=== PATIENT | male | born 1970 | race Hispanic/Latino ===

== ENCOUNTER 2021-02-07 14:40 | Emergency (ER) | payer OTHER ==
[2021-02-07] MEDS ORDERED: Ondansetron PF 4 MG/2 ML Vial ONE (15:48)
[2021-02-07] MEDS ORDERED: Ketorolac Tromethamine 30 MG/ML VIAL ONE (15:48)
[2021-02-07 16:10] LABS: #Basophils 0.1 10x3/uL (0.0-0.2); #Eosinphils 0.2 10x3/uL (0.0-0.5); #Neutrophils 6.6 10x3/uL (1.5-8.4); %Basophils 0.7 % (0.0-2.0); %Eosinophils 1.9 % (0.0-6.0); %Lymphocytes 15.4 % (18.0-47.0); %Monocytes 10.6 % (0.0-10.0); %Neutrophils 69.2 % (40.0-75.0); Hemoglobin 12.9 g/dL (13.5-17.5); Mean Corpuscular HGB CONC 33.8 g/dL (32.0-36.0); Mean Corpuscular Hemoglobin 30.6 pg (27.0-33.0); Mean Corpuscular Volume 90.5 fl (81.2-95.1); Mean Platelet Volume 10.2 fl (7.4-10.4); Platelet Count 210 10x3/uL (150-450); RBC Distribution Width 13.8 % (11.5-14.5); Red Blood Cell (RBC) Count 4.22 10x6/uL (4.32-5.72); White Blood Cell (WBC) Count 9.6 10x3/uL (3.5-10.5)
[2021-02-07 16:26] LABS: Anion Gap 15 mmol/L (10-20); BUN (Urea Nitrogen) 22 mg/dL (8.9-20.6); Bilirubin, Total 0.5 mg/dL (0.2-1.2); Calc. Creatinine Clearance 0 mL/min (70-130); Calcium 8.9 mg/dL (7.8-10.44); Carbon Dioxide 27 mmol/L (22-29); Chloride 101 mmol/L (98-107); Globulin 2.4 g/dL (2.4-3.5); Glucose 111 mg/dL (70-105); Potassium 3.7 mmol/L (3.5-5.1); Protein, Total 6.4 g/dL (6.0-8.3); Sodium 139 mmol/L (136-145)
[2021-02-07 16:27] LABS: ALT (SGPT) 23 U/L (8-55); AST (SGOT) 18 U/L (5-34); Alkaline Phosphatase 83 U/L (40-110); CK (CPK) 226 U/L (30-200); Lipase 25 U/L (8-78)
== END 2021-02-07 17:27 | disposition home or self-care (01) ==
LOC: CSHERS 14:40
DX: R10.11 Right upper quadrant pain (principal); S80.812A Abrasion, left lower leg, initial encounter; S80.811A Abrasion, right lower leg, initial encounter; E78.5 Hyperlipidemia, unspecified; I10 Essential (primary) hypertension; M10.9 Gout, unspecified; F17.200 Nicotine dependence, unspecified, uncomplicated
CPT/HCPCS: 74177; 80053; 82550; 83605; 83690; 84484; 85025; 93005; 96374; 96375; J1885; J2405

== ENCOUNTER 2021-02-22 06:46 | Emergency (ER) | payer OTHER ==
[2021-02-22 07:52] LABS: #Eosinphils 0.1 10x3/uL (0.0-0.5); #Monocytes 0.9 10x3/uL (0.0-1.1); #Neutrophils 6.2 10x3/uL (1.5-8.4); %Basophils 0.3 % (0.0-2.0); %Eosinophils 0.8 % (0.0-6.0); %Lymphocytes 18.2 % (18.0-47.0); %Monocytes 9.8 % (0.0-10.0); %Neutrophils 69.5 % (40.0-75.0); Hemoglobin 13.2 g/dL (13.5-17.5); Mean Corpuscular HGB CONC 33.9 g/dL (32.0-36.0); Mean Corpuscular Hemoglobin 31.1 pg (27.0-33.0); Mean Corpuscular Volume 91.5 fl (81.2-95.1); Mean Platelet Volume 9.9 fl (7.4-10.4); Platelet Count 199 10x3/uL (150-450); RBC Distribution Width 13.2 % (11.5-14.5); Red Blood Cell (RBC) Count 4.25 10x6/uL (4.32-5.72); White Blood Cell (WBC) Count 8.9 10x3/uL (3.5-10.5)
[2021-02-22 08:05] LABS: ALT (SGPT) 17 U/L (8-55); AST (SGOT) 10 U/L (5-34); Albumin 3.9 g/dL (3.5-5.0); Alkaline Phosphatase 77 U/L (40-110); Anion Gap 14 mmol/L (10-20); BUN (Urea Nitrogen) 20 mg/dL (8.9-20.6); Bilirubin, Total 0.5 mg/dL (0.2-1.2); Calc. Creatinine Clearance 0 mL/min (70-130); Calcium 8.9 mg/dL (7.8-10.44); Carbon Dioxide 26 mmol/L (22-29); Chloride 104 mmol/L (98-107); Globulin 2.8 g/dL (2.4-3.5); Glucose 145 mg/dL (70-105); Potassium 3.2 mmol/L (3.5-5.1); Protein, Total 6.7 g/dL (6.0-8.3); Sodium 141 mmol/L (136-145)
[2021-02-22 10:46] LABS: Troponin I 0.011 ng/mL (< 0.028)
[2021-02-22 20:11] LABS: SARS-CoV-2 PCR by NAA Not Detected (NotDetected)
== END 2021-02-22 10:50 | disposition home or self-care (01) ==
LOC: CSHERS 06:46
DX: J18.9 Pneumonia, unspecified organism (principal); Z20.822 Contact with and (suspected) exposure to COVID-19; I10 Essential (primary) hypertension; E11.9 Type 2 diabetes mellitus without complications; E78.5 Hyperlipidemia, unspecified; Z87.891 Personal history of nicotine dependence
CPT/HCPCS: 71045; 71275; 80053; 83880; 84484; 85025; 87635; 93005; U0003; U0005

== ENCOUNTER 2021-03-12 14:21 | Outpatient (CLI) | payer OTHER ==
[2021-03-13 02:08] LABS: SARS-CoV-2 NAA Rapid Test Not Detected (NotDetected)
== END 2021-03-12 14:22 | disposition home or self-care (01) ==
LOC: CSHLAB 14:21
PROVIDERS: ATTEND Internal Medicine Gastroenterology
DX: Z20.822 Contact with and (suspected) exposure to COVID-19 (principal); R10.9 Unspecified abdominal pain
CPT/HCPCS: 87635; U0002; U0003; U0005

== ENCOUNTER 2021-03-13 17:03 | Emergency (ER) | payer OTHER | END 2021-03-13 19:02 | disposition left against medical advice (07) | LOC: CSHERS 17:03 | DX: Z53.21 Procedure and treatment not carried out due to patient leaving prior to being seen by health care provider (principal) ==

== ENCOUNTER 2021-11-05 09:35 | Emergency (ER) | payer OTHER ==
[2021-11-05] MEDS ORDERED: Ketorolac Tromethamine 30 MG/ML VIAL ONE (10:05)
== END 2021-11-05 12:12 | disposition home or self-care (01) ==
LOC: CSHERS 09:35
DX: K42.9 Umbilical hernia without obstruction or gangrene (principal); M25.531 Pain in right wrist; E78.5 Hyperlipidemia, unspecified; I10 Essential (primary) hypertension; E11.9 Type 2 diabetes mellitus without complications; Z87.891 Personal history of nicotine dependence
CPT/HCPCS: 96372; 99283; J1885

== ENCOUNTER 2022-04-19 16:54 | Emergency (ER) | payer OTHER ==
[2022-04-19 17:24] LABS: #Basophils 0.1 10x3/uL (0.0-0.2); #Eosinphils 0.3 10x3/uL (0.0-0.5); #Monocytes 0.8 10x3/uL (0.0-1.1); #Neutrophils 4.5 10x3/uL (1.5-8.4); %Basophils 1.5 % (0.0-2.0); %Eosinophils 4.1 % (0.0-6.0); %Lymphocytes 21.1 % (18.0-47.0); %Monocytes 11.3 % (0.0-10.0); %Neutrophils 61.4 % (40.0-75.0); Hemoglobin 12.5 g/dL (13.5-17.5); Mean Corpuscular HGB CONC 34.3 g/dL (32.0-36.0); Mean Corpuscular Hemoglobin 30.1 pg (27.0-33.0); Mean Corpuscular Volume 87.7 fl (81.2-95.1); Mean Platelet Volume 9.6 fl (7.4-10.4); Platelet Count 201 10x3/uL (150-450); RBC Distribution Width 13.3 % (11.5-14.5); Red Blood Cell (RBC) Count 4.15 10x6/uL (4.32-5.72); White Blood Cell (WBC) Count 7.3 10x3/uL (3.5-10.5)
[2022-04-19 17:29] LABS: Bilirubin Neg (Negative); Blood, Urine 150 (Negative); Clarity Clear (Clear); Glucose, Urine (Dipstick) Normal (Negative); Ketone, Urine Negative (Negative); Leukocyte Negative (Negative); Nitrite Negative (Negative); Protein, Urine (Dipstick) 30 mg/dl (Neg-Trace)
[2022-04-19 17:35] LABS: RBC/HPF 21-50 HPF (0-3); Squamous Epithelial 0-3 HPF (0-3); WBC/HPF 0-3 HPF (0-3)
[2022-04-19 17:36] LABS: Bacteria/HPF None Seen HPF (None Seen)
[2022-04-19 17:39] LABS: ALT (SGPT) 17 U/L (8-55); AST (SGOT) 16 U/L (5-34); Albumin 4.2 g/dL (3.5-5.0); Alkaline Phosphatase 71 U/L (40-110); Anion Gap 18 mmol/L (10-20); BUN (Urea Nitrogen) 23 mg/dL (8.4-25.7); Bilirubin, Total 0.4 mg/dL (0.2-1.2); Calc. Creatinine Clearance 0 mL/min (70-130); Calcium 9.6 mg/dL (7.8-10.44); Carbon Dioxide 22 mmol/L (22-29); Chloride 103 mmol/L (98-107); Globulin 2.9 g/dL (2.4-3.5); Glucose 134 mg/dL (70-105); Lipase 51 U/L (8-78); Magnesium 1.5 mg/dL (1.6-2.6); Potassium 3.8 mmol/L (3.5-5.1); Protein, Total 7.1 g/dL (6.0-8.3); Sodium 139 mmol/L (136-145)
[2022-04-19] MEDS ORDERED: Ketorolac Tromethamine 30 MG/ML VIAL ONE (17:47)
[2022-04-19] MEDS ORDERED: Morphine 4 MG/ML VIAL ONE (17:47)
[2022-04-19] MEDS ORDERED: Ondansetron PF 4 MG/2 ML Vial ONE (17:48)
== END 2022-04-19 19:24 | disposition home or self-care (01) ==
LOC: CSHERS 16:54
DX: N13.2 Hydronephrosis with renal and ureteral calculous obstruction (principal); E78.5 Hyperlipidemia, unspecified; I10 Essential (primary) hypertension; E11.9 Type 2 diabetes mellitus without complications; Z87.891 Personal history of nicotine dependence
CPT/HCPCS: 74176; 80053; 81003; 81015; 83690; 83735; 85025; 87086; 96374; 96375; J1885; J2270; J2405

== ENCOUNTER 2023-01-21 14:32 | Emergency (ER) | payer OTHER ==
[2023-01-21] MEDS ORDERED: traMADol HCl 50 MG TAB ONE (15:51)
[2023-01-21] MEDS ORDERED: Acetaminophen 500 MG TAB ONE (15:55)
== END 2023-01-21 16:54 | disposition home or self-care (01) ==
LOC: CSHERS 14:32
DX: M54.50 Low back pain, unspecified (principal); M25.511 Pain in right shoulder; V49.60XA Unspecified car occupant injured in collision with unspecified motor vehicles in traffic accident, initial encounter; Y92.410 Unspecified street and highway as the place of occurrence of the external cause
CPT/HCPCS: 72128; 72131

== ENCOUNTER 2023-08-23 03:52 | Emergency (ER) | payer OTHER ==
[2023-08-23 04:29] LABS: Bilirubin Neg (Negative); Blood, Urine 150 (Negative); Clarity Slightly Cloudy (Clear); Glucose, Urine (Dipstick) Normal (Negative); Ketone, Urine Negative (Negative); Leukocyte 25 (Negative); Nitrite Negative (Negative); Protein, Urine (Dipstick) 30 mg/dl (Neg-Trace); Specific Gravity, Urine 1.015 (1.005-1.030); Urobilinogen Normal mg/dL (Less than 2)
[2023-08-23] MEDS ORDERED: Ketorolac Tromethamine 30 MG/ML VIAL ONE (04:34)
[2023-08-23 04:58] LABS: CAUTI Indications for Culture Dysuria,urgency,freq; RBC/HPF 21-50 HPF (0-3); WBC/HPF 0-3 HPF (0-3)
[2023-08-23 04:59] LABS: Bacteria/HPF Rare-Few HPF (None Seen)
[2023-08-23 05:00] LABS: Urine Culture Reflex No No
== END 2023-08-23 05:10 | disposition home or self-care (01) ==
LOC: CSHERS 03:52
DX: R30.0 Dysuria (principal); R31.9 Hematuria, unspecified; K21.9 Gastro-esophageal reflux disease without esophagitis; E11.9 Type 2 diabetes mellitus without complications; E78.5 Hyperlipidemia, unspecified; Z79.84 Long term (current) use of oral hypoglycemic drugs; Z79.899 Other long term (current) drug therapy
CPT/HCPCS: 81001; 96372; 99283; J1885

== ENCOUNTER 2024-09-29 15:15 | Emergency (ER) | payer OTHER ==
[2024-09-29] MEDS ORDERED: Acetaminophen 325 MG TAB ONE (15:50)
[2024-09-29] MEDS ORDERED: Morphine 10 MG/ML VIAL ONE (17:03)
[2024-09-29] MEDS ORDERED: Ondansetron PF 4 MG/2 ML Vial ONE (17:03)
== END 2024-09-29 17:44 | disposition home or self-care (01) ==
LOC: CSHERS 15:15
DX: S06.0X0A Concussion without loss of consciousness, initial encounter (principal); S16.1XXA Strain of muscle, fascia and tendon at neck level, initial encounter; E11.9 Type 2 diabetes mellitus without complications; I10 Essential (primary) hypertension; W19.XXXA Unspecified fall, initial encounter
CPT/HCPCS: 70450; 72125; 96372; J2270; J2405